=== PATIENT | male | born 1995 ===

== ENCOUNTER 2020-12-24 16:01 | Outpatient (REF) | payer MEDICARE, MEDICAID, SELFPAY ==
[2020-12-26 16:53] LABS: Chlamydia Result Negative (Negative); GC Result Negative (Negative)
== END 2020-12-24 16:02 | disposition home or self-care (01) ==
LOC: NCHCN 16:01
PROVIDERS: PCP Internal Medicine; Visit Provider Internal Medicine
DX: Z00.00 Encounter for general adult medical examination without abnormal findings; R03.0 Elevated blood-pressure reading, without diagnosis of hypertension
CPT/HCPCS: 87491; 87591

== ENCOUNTER 2023-01-28 16:32 | Outpatient (REF) | payer MEDICARE, MEDICAID, SELFPAY ==
[2023-01-28 20:52] LABS: HCT 44.2 % (40.0-50.0); HGB 15.4 g/dL (13.5-17.5); MCH 29.1 pg (27.0-33.0); MCHC 34.8 % (32.0-36.0); MCV 84 fL (80-95); MPV 9.6 fL (8.0-11.0); Platelet Count 343 10^3/uL (130-400); RBC 5.29 10^6/uL (4.36-5.78); RDW 11.8 % (11.8-14.1); RDW-SD 35.7 fL; WBC 7.88 10^3/uL (4.4-10.8)
[2023-01-28 21:13] LABS: TSH (W/Ref FT4) 0.79 uIU/mL (0.36-3.74)
== END 2023-01-28 16:33 | disposition home or self-care (01) ==
LOC: NCHCN 16:32
PROVIDERS: PCP Internal Medicine; Visit Provider Internal Medicine
DX: Z00.00 Encounter for general adult medical examination without abnormal findings (principal); R03.0 Elevated blood-pressure reading, without diagnosis of hypertension
CPT/HCPCS: 85027; 84443

== ENCOUNTER 2024-02-01 21:20 | Outpatient (REF) | payer MEDICARE, MEDICAID, SELFPAY ==
[2024-02-01 19:24] LABS: Calculated LDL 97 mg/dL (<100); Cholesterol 169 mg/dL (<200); HDL Cholesterol 52 mg/dL (40-60); Triglyceride 101 mg/dL (<150)
[2024-02-02 19:28] LABS: Hepatitis C Ab w Rflx HCV PCR Negative (Negative)
== END 2024-02-01 21:21 | disposition home or self-care (01) ==
LOC: NCHCN 21:20
PROVIDERS: PCP Internal Medicine; Visit Provider Internal Medicine
DX: Z00.00 Encounter for general adult medical examination without abnormal findings (principal)
CPT/HCPCS: 80061; 86803